=== PATIENT | female | born 1970 | race Caucasian/White ===

== ENCOUNTER 2022-10-12 09:15 | Outpatient (RCR) | payer BC, SELFPAY | END 2023-01-17 16:53 | disposition home or self-care (01) | PROVIDERS: PCP Family Medicine; Visit Provider Podiatrist | DX: S82.841A Displaced bimalleolar fracture of right lower leg, initial encounter for closed fracture (principal); Z51.89 Encounter for other specified aftercare | CPT/HCPCS: 97035; 97110; 97112; 97116; 97140; 97162; 97535 ==